=== PATIENT | male | born 1980 | race African-American/Black ===

== ENCOUNTER 2020-05-19 15:38 | Emergency (ER) | payer MEDICAID ==
[~2020-05-19] VITALS: Ht 167.6 cm; Wt 66.4 kg
[2020-05-19 15:54] VITALS: BP 153/74
--- NOTE | 2020-05-19 16:25 | NUR ---
FLUCTUATING L LEG PAIN AND "LUMPS IN MY GROIN" X TWO WEEKS. PT AMBULATORY TO TRIAGE. DENIES TRAUMA. "I ALSO THINK I HAVE A URINARY TRACT INFECTION" WOUND ON PENIS STARTING 2 WEEKS AGO.
[2020-05-19] MEDS ORDERED: AZITHROMYCIN 500 MG TABLET ONE (16:59)
[2020-05-19] MEDS ORDERED: CEFTRIAXONE 250 MG ONE (16:59)
[2020-05-19] MEDS ORDERED: AZITHROMYCIN 500 MG TABLET PO ONE (17:00)
[2020-05-19] MEDS ORDERED: CEFTRIAXONE 250 MG IM ONE (17:00)
[2020-05-19] MEDS ORDERED: BICILLIN-LA 2,400,000 UNITS/4 ML IM ONE (17:30)
== END 2020-05-19 18:12 | disposition home or self-care (01) ==
LOC: ED 18:00
DX: A57 Chancroid (principal); R30.0 Dysuria; F17.200 Nicotine dependence, unspecified, uncomplicated
CPT/HCPCS: 87491; 87591; 96372; 99284; J0561; J0696

== ENCOUNTER 2020-05-22 07:54 | Emergency (ER) | payer MEDICAID ==
[~2020-05-22] VITALS: Ht 170.2 cm; Wt 73.0 kg
[2020-05-22 07:56] VITALS: BP 120/68
[2020-05-22] MEDS ORDERED: IBUPROFEN 600 MG TABLET ONE (08:19)
--- NOTE | 2020-05-22 08:28 | NUR ---
TASK RN: PT MEDICATED PER MAR. NO OTHER NEEDS
[2020-05-22] MEDS ORDERED: IBUPROFEN 600 MG TABLET PO ONE (08:30)
--- NOTE | 2020-05-22 09:03 | NUR ---
Patient given discharge instructions and prescription and they have confirmed that they understand the instructions. Patient stable and ambulatory with use of crutches from ED.
== END 2020-05-22 09:04 | disposition home or self-care (01) ==
LOC: ED 08:35
DX: S93.491A Sprain of other ligament of right ankle, initial encounter (principal); W19.XXXA Unspecified fall, initial encounter; Y93.89 Activity, other specified; Y92.488 Other paved roadways as the place of occurrence of the external cause; Y99.8 Other external cause status
CPT/HCPCS: 99283

== ENCOUNTER 2020-06-05 08:23 | Emergency (ER) | payer MEDICAID ==
[~2020-06-05] VITALS: Ht 167.6 cm; Wt 65.5 kg
[2020-06-05] MEDS ORDERED: CEFTRIAXONE 250 MG ONE (09:13)
[2020-06-05] MEDS ORDERED: AZITHROMYCIN 250 MG TABLET ONE (09:14)
--- NOTE | 2020-06-05 09:19 | NUR ---
PHARM REQUEST SENT TO LAB
[2020-06-05] MEDS ORDERED: CEFTRIAXONE 250 MG IM ONE (09:30)
[2020-06-05] MEDS ORDERED: AZITHROMYCIN 500 MG TABLET PO ONE (10:00)
[2020-06-05] MEDS ORDERED: BICILLIN-LA 2,400,000 UNITS/4 ML IM ONE (10:00)
[2020-06-05 10:17] VITALS: BP 124/74
== END 2020-06-05 10:20 | disposition home or self-care (01) ==
LOC: ED 09:30
DX: A51.0 Primary genital syphilis (principal)
CPT/HCPCS: 87491; 87591; 96372; 99284; J0561; J0696

== ENCOUNTER 2020-09-27 11:53 | Emergency (ER) | payer MEDICAID ==
[~2020-09-27] VITALS: Ht 170.2 cm; Wt 62.3 kg
--- NOTE | 2020-09-27 12:05 | NUR ---
NIL X1
[2020-09-27] MEDS ORDERED: CEFTRIAXONE 1,000 MG ONE (12:58)
[2020-09-27] MEDS ORDERED: CEFTRIAXONE 1,000 MG IM ONE ×2 (13:00→13:30)
--- NOTE | 2020-09-27 13:08 | NUR ---
PT C/O OF PAINFUL URINATION AND STATES HE CAN'T HOLD ON TO URINE FOR TO LONG. REPORTS FEELING OF HAVING TO URINATE A LOT. STARTED 9 DAYS AGO.
[2020-09-27 13:16] VITALS: BP 111/79
== END 2020-09-27 13:36 | disposition home or self-care (01) ==
LOC: ED 12:25
DX: N34.1 Nonspecific urethritis (principal); R30.0 Dysuria; R00.0 Tachycardia, unspecified
CPT/HCPCS: 96372; 99283; J0696

== ENCOUNTER 2021-02-13 09:55 | Emergency (ER) | payer MEDICAID ==
[~2021-02-13] VITALS: Ht 170.2 cm; Wt 63.0 kg
[2021-02-13 09:58] VITALS: BP 130/82
[2021-02-13 12:33] LABS: MICROSCOPIC INDICATED
--- NOTE | 2021-02-13 12:50 | NUR ---
ALETHAx1
--- NOTE | 2021-02-13 13:28 | NUR ---
NILx2
--- NOTE | 2021-02-13 14:09 | NUR ---
NILx3
== END 2021-02-13 14:12 | disposition left against medical advice (07) ==
LOC: ED 12:20
DX: R10.9 Unspecified abdominal pain (principal); Z53.21 Procedure and treatment not carried out due to patient leaving prior to being seen by health care provider
CPT/HCPCS: 81001; 87086; 87147; 87491; 87591

== ENCOUNTER 2021-02-15 22:19 | Emergency (ER) | payer MEDICAID ==
[~2021-02-15] VITALS: Ht 170.2 cm; Wt 66.0 kg
[2021-02-15] MEDS ORDERED: LIDOCAINE 2%, 20ML SQ ONE (23:00)
[2021-02-15] MEDS ORDERED: IBUPROFEN 600 MG TABLET PO ONE (23:00)
[2021-02-16] MEDS ORDERED: IBUPROFEN 600 MG TABLET ONE (00:48)
[2021-02-16] MEDS ORDERED: LIDOCAINE-MPF 1%, 5ML ONE (00:48)
--- NOTE | 2021-02-16 01:21 | NUR ---
PT C/O OF ABSCESS ABOVE PENIS AND ON RIGHT BUTTOCKS. PT ATTACHED TO MONIOTRS. CHANGED INTO GOWN, VSS. NADN AT MOMENT. WCTM. AWAITING ABSCESS PROCEDURE
[2021-02-16] MEDS ORDERED: CEFTRIAXONE 1,000 MG IM ONE (01:30)
[2021-02-16 01:34] LABS: MICROSCOPIC INDICATED
[2021-02-16] MEDS ORDERED: AZITHROMYCIN 500 MG TABLET ONE (01:55)
[2021-02-16] MEDS ORDERED: CEFTRIAXONE 1,000 MG ONE (01:55)
[2021-02-16] MEDS ORDERED: AZITHROMYCIN 500 MG TABLET PO ONE (02:00)
[2021-02-16] MEDS ORDERED: BICILLIN-LA 2,400,000 UNITS/4 ML IM ONE (02:00)
--- NOTE | 2021-02-16 03:44 | NUR ---
Break RN: patient discharged with prescription and instruction. verbalized understanding.
[2021-02-16 03:46] VITALS: BP 119/71
== END 2021-02-16 03:51 | disposition home or self-care (01) ==
LOC: ED 02-16 02:15
DX: L02.415 Cutaneous abscess of right lower limb (principal); L02.31 Cutaneous abscess of buttock; A56.01 Chlamydial cystitis and urethritis; A51.0 Primary genital syphilis; F17.200 Nicotine dependence, unspecified, uncomplicated
CPT/HCPCS: 10060; 36415; 81001; 86592; 86780; 87086; 87491; 87591; 87806; 96372; 99284; J0561; J0696; 87077; 87147; G0475